=== PATIENT | female | born 1940 | race Two or more races ===

== ENCOUNTER → 2022-11-23 | Outpatient (CLI) | payer OTHER ==
[2022-11-23 09:11] LABS: Basophils # (auto) 0 10 ^3/uL (0-0.2); Basophils % (auto) 0.9 % (0.0-2.0); Eosinophils # (auto) 0 10 ^3/uL (0-0.8); Eosinophils % (auto) 0.8 % (0.0-7.0); Hematocrit 46.4 % (36.0-46.0); Hemoglobin 15.6 g/dL (12.2-16.2); Lymphocytes # (auto) 1.6 10 ^3/uL (0.4-5.4); Lymphocytes % (auto) 33.7 % (10.0-50.0); Mean Corpuscular Hemoglobin 32.3 pg (28.0-32.0); Mean Corpuscular Hgb Conc. 33.7 g/dL (32.0-36.0); Mean Corpuscular Volume 95.8 fL (80.0-100.0); Monocytes # (auto) 0.4 10 ^3/uL (0-1.3); Monocytes % (auto) 8.1 % (0.0-12.0); Neutrophils # (auto) 2.8 10 ^3/uL (1.6-8.6); Neutrophils % (auto) 56.5 % (37.0-80.0); Nucleated Red Blood Cells % 0.2 %; Red Blood Cells 4.85 10^6/uL (4.0-5.20); Red Cell Distribution Width 13.4 % (11.8-14.3); White Blood Cell 4.9 10^3/uL (4.4-10.8)
[2022-11-23 09:34] LABS: Calcium 9.4 mg/dL (8.5-10.1)
[2022-11-23 09:37] LABS: Free T4 (Free Thyroxine) 1.63 ng/dL (0.89-1.76)
[2022-11-23 09:38] LABS: Free T3 3.86 pg/mL (2.3-4.2)
[2022-11-23 09:42] LABS: Albumin 4.5 g/dL (3.4-5.0); BUN/Creatinine Ratio 18.9 (10.0-20.0); Bilirubin, Total 0.9 mg/dL (0.2-1.0); Total Protein 8.3 g/dL (6.4-8.2)
== END | disposition home or self-care (01) ==
LOC: LAB 08:13
PROVIDERS: ATTEND Internal Medicine
DX: E11.69 Type 2 diabetes mellitus with other specified complication (principal); E78.5 Hyperlipidemia, unspecified; E03.9 Hypothyroidism, unspecified; E55.9 Vitamin D deficiency, unspecified
CPT/HCPCS: 36415; 80053; 82043; 82306; 82465; 83036; 83718; 83721; 84439; 84443; 84478; 84481; 85025

== ENCOUNTER → 2023-05-09 | Outpatient (CLI) | payer OTHER ==
[2023-05-09 09:50] LABS: Basophils # (auto) 0 10 ^3/uL (0-0.2); Basophils % (auto) 0.6 % (0.0-2.0); Eosinophils # (auto) 0 10 ^3/uL (0-0.8); Eosinophils % (auto) 0.8 % (0.0-7.0); Hemoglobin 14.8 g/dL (12.2-16.2); Lymphocytes # (auto) 1.4 10 ^3/uL (0.4-5.4); Lymphocytes % (auto) 25.6 % (10.0-50.0); Mean Corpuscular Hemoglobin 32.3 pg (28.0-32.0); Mean Corpuscular Hgb Conc. 32.9 g/dL (32.0-36.0); Monocytes # (auto) 0.5 10 ^3/uL (0-1.3); Monocytes % (auto) 8.7 % (0.0-12.0); Neutrophils # (auto) 3.5 10 ^3/uL (1.6-8.6); Neutrophils % (auto) 64.3 % (37.0-80.0); Red Blood Cells 4.59 10^6/uL (4.0-5.20); Red Cell Distribution Width 13.5 % (11.8-14.3); White Blood Cell 5.4 10^3/uL (4.4-10.8)
[2023-05-09 09:55] LABS: Alanine Aminotransferase 17 U/L (7-40); Albumin 4.8 g/dL (3.2-4.8); Alkaline Phosphatase 78 U/L (46-116); Anion Gap 7 (5-15); Aspartate Aminotransferase 16 U/L (13-40); BUN/Creatinine Ratio 9.7 (10.0-20.0); Bilirubin, Total 1.1 mg/dL (0.2-1.0); Blood Urea Nitrogen 9 mg/dL (9-23); Calcium 9.7 mg/dL (8.5-10.1); Carbon Dioxide 26 mmol/L (20-30); Chloride 104 mmol/L (98-107); Cholesterol 186 mg/dL (< 200); Glucose 115 mg/dL (74-106); HDL Cholesterol 97 mg/dL (40-59); LDL Cholesterol 76 mg/dL (< 100); Potassium 4.3 mmol/L (3.5-5.1); Sodium 137 mmol/L (136-145); Triglycerides 80 mg/dL (< 150)
[2023-05-09 09:56] LABS: Total Protein 7.7 g/dL (5.7-8.2)
== END | disposition home or self-care (01) ==
LOC: LAB 08:41
PROVIDERS: ATTEND Internal Medicine
DX: E11.29 Type 2 diabetes mellitus with other diabetic kidney complication (principal); E03.9 Hypothyroidism, unspecified
CPT/HCPCS: 36415; 80053; 80061; 82043; 83036; 84436; 84443; 84480; 85025

== ENCOUNTER 2023-07-20 08:33 | Inpatient (IN) | payer OTHER ==
[~2023-07-20] VITALS: Ht 162.6 cm; Wt 80.0 kg
[2023-07-20 08:56] VITALS: PULSE 154; RESP 16; O2SAT 93
[2023-07-20] MEDS ORDERED: dilTIAZem 25 MG/5 ML VIAL IV ONE (09:00)
[2023-07-20] MEDS ORDERED: dilTIAZem 125mg/125ml BAG KIT 100 ML IV ONE (09:00)
[2023-07-20] MEDS ORDERED: IOHEXOL 350 MG/ML 100ML IJ ONE (09:22)
[2023-07-20 09:26] LABS: Basophils # (auto) 0 10 ^3/uL (0-0.2); Basophils % (auto) 0.3 % (0.0-2.0); Eosinophils # (auto) 0 10 ^3/uL (0-0.8); Hematocrit 43.7 % (36.0-46.0); Hemoglobin 14.6 g/dL (12.2-16.2); Lymphocytes # (auto) 0.2 10 ^3/uL (0.4-5.4); Lymphocytes % (auto) 2.1 % (10.0-50.0); Mean Corpuscular Hemoglobin 31.6 pg (28.0-32.0); Mean Corpuscular Hgb Conc. 33.4 g/dL (32.0-36.0); Mean Corpuscular Volume 94.8 fL (80.0-100.0); Monocytes # (auto) 0.6 10 ^3/uL (0-1.3); Neutrophils # (auto) 8.4 10 ^3/uL (1.6-8.6); Neutrophils % (auto) 90.6 % (37.0-80.0); Red Blood Cells 4.61 10^6/uL (4.0-5.20); White Blood Cell 9.2 10^3/uL (4.4-10.8)
[2023-07-20 09:45] LABS: Alanine Aminotransferase 25 U/L (7-40); Albumin 4.5 g/dL (3.2-4.8); Alkaline Phosphatase 69 U/L (46-116); Anion Gap 15 (5-15); Aspartate Aminotransferase 40 U/L (13-40); BUN/Creatinine Ratio 15.1 (10.0-20.0); Bilirubin, Total 1.1 mg/dL (0.2-1.0); Blood Urea Nitrogen 11 mg/dL (9-23); Calcium 9.3 mg/dL (8.5-10.1); Carbon Dioxide 20 mmol/L (20-30); Chloride 102 mmol/L (98-107); Glucose 94 mg/dL (74-106); Potassium 3.2 mmol/L (3.5-5.1); Sodium 137 mmol/L (136-145); Total Protein 7.3 g/dL (5.7-8.2)
[2023-07-20] MEDS ORDERED: ACETAMINOPHEN 325 MG TAB PO ONE (10:15)
[2023-07-20 10:29] LABS: INR 1.55 (0.9-1.15); Partial Thromboplastin Time 37.2 SEC (24.5-34.5); Prothrombin Time 15.8 sec (9.3-11.8)
[2023-07-20 10:42] LABS: COVID19 ANTIGEN SOFIA FIA NEGATIVE (NEGATIVE)
[2023-07-20 10:54] LABS: Rapid Influenza B Negative (Negative)
[2023-07-20 10:55] LABS: Rapid Influenza A Positive (Negative)
[2023-07-20] MEDS ORDERED: PIPERACILLIN-TAZO 4.5GM 100 ML IV ONE (11:15)
[2023-07-20] MEDS ORDERED: POTASSIUM EFFERVESENT TAB 25 MEQ PO ONE (11:15)
[2023-07-20] MEDS ORDERED: VANCOMYCIN 1GM/200ML 200 ML IV ONE (11:15)
[2023-07-20 11:21] LABS: Magnesium 1.6 mg/dL (1.6-2.6)
[2023-07-20] MEDS ORDERED: METO1TAB9 PO (11:44)
[2023-07-20] MEDS ORDERED: DILT-14 PO (11:44)
[2023-07-20] MEDS ORDERED: FURO40TA4 PO (11:44)
[2023-07-20] MEDS ORDERED: LIOT5TAB20 PO (11:44)
[2023-07-20] MEDS ORDERED: LOS25T PO (11:44)
[2023-07-20] MEDS ORDERED: LEVO125T7 PO (11:44)
[2023-07-20] MEDS ORDERED: POTA-228 PO (11:44)
[2023-07-20] MEDS ORDERED: guaiFENesin-CODEINE Liq 5 ML UD PO ONE (11:45)
[2023-07-20] MEDS ORDERED: guaiFENesin-CODEINE Liq 5 ML UD PO PRN (11:45)
[2023-07-20] MEDS ORDERED: MORPHINE SULFATE INJ 2 MG/ml SYRG IV PRN (11:45)
[2023-07-20] MEDS ORDERED: ALBUTEROL SULF 2.5 MG/0.5ML(0.5%) NEB SOLN NEB PRN (11:45)
[2023-07-20] MEDS ORDERED: NITROGLYCERIN 0.4 MG SL TAB SL PRN (11:45)
[2023-07-20] MEDS ORDERED: BENZ100C97 PO (11:55)
[2023-07-20] MEDS ORDERED: RIVA10TA PO (11:56)
[2023-07-20 12:16] VITALS: BP 126/69; PULSE 128; RESP 28; TEMP 99.9; O2SAT 94
[2023-07-20 12:32] LABS: Triglycerides 102 mg/dL (< 150)
[2023-07-20 12:33] LABS: LDL Cholesterol 58 mg/dL (< 100)
[2023-07-20 12:34] LABS: Cholesterol 136 mg/dL (< 200); HDL Cholesterol 61 mg/dL (40-59)
[2023-07-20] MEDS ORDERED: POTASSIUM CHL 20 Meq TABLET PO ONE (13:30)
[2023-07-20] MEDS ORDERED: MAGNESIUM SULFATE 1GM/100ML 100 ML IV ONE (13:30)
[2023-07-20] MEDS: SODIUM CHLORIDE 0.9% 1,000 ML IV SCH (13:45)
[2023-07-20] MEDS: cefTRIAXone 1GM/50ML D5W 50 ML IV SCH (14:00)
[2023-07-20] MEDS ORDERED: AZITHROMYCIN 500MG/ 250ML 250 ML IV SCH (14:00)
[2023-07-20] MEDS ORDERED: ALBUTEROL SULF 2.5 MG/0.5ML(0.5%) NEB SOLN NEB SCH (14:00)
[2023-07-20] MEDS ORDERED: IPRATROPIUM BROM 0.5 MG/2.5ML INH SOL NEB SCH (14:00)
[2023-07-20] MEDS ORDERED: DIGOXIN (250MCG/ML) 2 ML AMPULE IV ONE ×3 (14:45→18:45)
[2023-07-20] MEDS ORDERED: OSELTAMIVIR 75 MG CAP PO ONE (14:45)
[2023-07-20 16:48] LABS: Potassium 3.8 mmol/L (3.5-5.1)
[2023-07-20 16:55] LABS: Magnesium 1.9 mg/dL (1.6-2.6)
[2023-07-20] MEDS: ACETAMINOPHEN 325 MG TAB PO PRN ×2 (19:06→20:29)
[2023-07-20 19:10] VITALS: PULSE 103; RESP 20; O2SAT 97
[2023-07-20] MEDS: LEVALBUTEROL HCL 1.25 MG/3 ML NEB NEB SCH (19:17)
[2023-07-20 19:18] VITALS: PULSE 101; RESP 18; O2SAT 97; O2SAT 99
[2023-07-20 20:00] VITALS: PULSE 102; RESP 16; O2SAT 94
[2023-07-20] MEDS ORDERED: OSELTAMIVIR 30 MG CAP PO SCH (22:00)
[2023-07-21] VITALS (13 sets, daily range): BP systolic 165–169; BP diastolic 73–76; PULSE 89–114; RESP 18–28; TEMP 98.6–98.9; O2SAT 91–98
[2023-07-21] MEDS: LEVALBUTEROL HCL 1.25 MG/3 ML NEB NEB SCH ×4 (00:04→19:23)
[2023-07-21] MEDS ORDERED: dilTIAZem 125mg/125ml BAG KIT 100 ML IV SCH (01:00)
[2023-07-21 05:39] LABS: Basophils # (auto) 0 10 ^3/uL (0-0.2); Basophils % (auto) 0.1 % (0.0-2.0); Eosinophils # (auto) 0 10 ^3/uL (0-0.8); Hematocrit 39.2 % (36.0-46.0); Lymphocytes # (auto) 0.7 10 ^3/uL (0.4-5.4); Lymphocytes % (auto) 6.4 % (10.0-50.0); Mean Corpuscular Hemoglobin 31.8 pg (28.0-32.0); Mean Corpuscular Hgb Conc. 33.2 g/dL (32.0-36.0); Mean Corpuscular Volume 95.7 fL (80.0-100.0); Monocytes # (auto) 0.5 10 ^3/uL (0-1.3); Monocytes % (auto) 4.9 % (0.0-12.0); Neutrophils # (auto) 9.8 10 ^3/uL (1.6-8.6); Neutrophils % (auto) 88.6 % (37.0-80.0); Red Cell Distribution Width 12.9 % (11.8-14.3)
[2023-07-21 05:48] LABS: Alanine Aminotransferase 17 U/L (7-40); Alkaline Phosphatase 56 U/L (46-116); Anion Gap 10 (5-15); Aspartate Aminotransferase 25 U/L (13-40); BUN/Creatinine Ratio 10.9 (10.0-20.0); Blood Urea Nitrogen 7 mg/dL (9-23); Calcium 8.7 mg/dL (8.5-10.1); Carbon Dioxide 21 mmol/L (20-30); Chloride 106 mmol/L (98-107); Glucose 95 mg/dL (74-106); Potassium 4.2 mmol/L (3.5-5.1); Sodium 137 mmol/L (136-145)
[2023-07-21 05:49] LABS: Albumin 3.8 g/dL (3.2-4.8)
[2023-07-21 05:50] LABS: Total Protein 6.3 g/dL (5.7-8.2)
[2023-07-21] MEDS ORDERED: LIOTHYRONINE SODIUM 5 MCG PO SCH (06:00)
[2023-07-21] MEDS ORDERED: LEVOTHYROXINE SODIUM 25 MCG TAB PO SCH (06:00)
[2023-07-21] MEDS: SODIUM CHLORIDE 0.9% 1,000 ML IV SCH (07:20)
[2023-07-21] MEDS: ACETAMINOPHEN 325 MG TAB PO PRN ×2 (08:18→23:02)
[2023-07-21] MEDS: cefTRIAXone 1GM/50ML D5W 50 ML IV SCH (09:08)
[2023-07-21 09:39] LABS: Urine WBC None Seen /hpf (0 - 5)
[2023-07-21] MEDS ORDERED: DOXYCYCLINE 100MG/250ML 250 ML IV SCH (09:45)
[2023-07-21 09:55] LABS: Urine Bacteria NONE SEEN /hpf (None Seen); Urine Blood Negative /uL (Negative); Urine Clarity HAZY (Clear); Urine Color Yellow (Yellow); Urine Protein, UAD 1+ (Negative); Urine Specific Gravity 1.026 (1.001-1.035); Urine Urobilinogen Normal (Negative)
[2023-07-21] MEDS ORDERED: ENOXAPARIN SOD 40 MG/0.4 ML SYRINGE SC SCH (10:00)
[2023-07-21] MEDS ORDERED: LOSARTAN POTASSIUM 25 MG TAB PO SCH (10:00)
[2023-07-21] MEDS ORDERED: dilTIAZem 120MG ER CAP PO SCH ×2 (10:00)
[2023-07-21] MEDS ORDERED: RIVAROXABAN 10 MG TAB PO SCH (10:00)
[2023-07-21] MEDS ORDERED: DIGOXIN 0.125 MG TAB PO SCH (10:00)
[2023-07-21] MEDS ORDERED: OSELTAMIVIR 30 MG CAP PO SCH (10:00)
[2023-07-21] MEDS ORDERED: METOPROLOL SUCCINATE XL 50 MG TAB PO SCH (10:00)
[2023-07-21] MEDS ORDERED: POTASSIUM CHL 10 Meq TABLET PO SCH (10:00)
[2023-07-21] MEDS: OSELTAMIVIR 75 MG CAP PO SCH ×2 (10:25→23:04)
[2023-07-21] MEDS ORDERED: guaiFENesin 200 MG/10 ML UD GT PRN (11:00)
[2023-07-21] MEDS ORDERED: METOPROLOL TARTRATE 25 MG TAB PO ONE (11:15)
[2023-07-21] MEDS ORDERED: MAGNESIUM OXIDE 400 MG TAB PO ONE (11:15)
[2023-07-21] MEDS ORDERED: FUROSEMIDE 20 MG/2 ML VIAL IV ONE (11:15)
[2023-07-21] MEDS ORDERED: ENOXAPARIN SOD 80 MG/0.8ML SYRINGE SC ONE (12:45)
[2023-07-21] MEDS: PANTOPRAZOLE 40 MG TAB PO SCH (16:28)
[2023-07-21] MEDS ORDERED: LOSARTAN POTASSIUM 25 MG TAB PO ONE (19:15)
[2023-07-21] MEDS ORDERED: MELATONIN 5 MG TAB PO ONE (22:00)
[2023-07-21] MEDS ORDERED: METOPROLOL TARTRATE 25 MG TAB PO SCH (22:00)
[2023-07-21] MEDS ORDERED: MELATONIN 5 MG TAB ONE (22:57)
[2023-07-21] MEDS: METOPROLOL TARTRATE 25 MG TAB PO SCH (23:03)
[2023-07-21] MEDS: DOXYCYCLINE 100 MG TAB/CAP PO SCH (23:04)
[2023-07-21] MEDS: ENOXAPARIN SOD 80 MG/0.8ML SYRINGE SC SCH (23:08)
[2023-07-22] VITALS (16 sets, daily range): BP systolic 115–176; BP diastolic 62–87; PULSE 78–114; RESP 16–20; TEMP 98.1–100.4; O2SAT 91–100
[2023-07-22] MEDS: LEVALBUTEROL HCL 1.25 MG/3 ML NEB NEB SCH ×4 (00:29→19:25)
[2023-07-22 05:37] LABS: Basophils # (auto) 0 10 ^3/uL (0-0.2); Basophils % (auto) 0.4 % (0.0-2.0); Eosinophils # (auto) 0 10 ^3/uL (0-0.8); Eosinophils % (auto) 0.2 % (0.0-7.0); Hematocrit 37.5 % (36.0-46.0); Hemoglobin 12.4 g/dL (12.2-16.2); Lymphocytes # (auto) 1.2 10 ^3/uL (0.4-5.4); Lymphocytes % (auto) 13.4 % (10.0-50.0); Mean Corpuscular Hemoglobin 31.5 pg (28.0-32.0); Mean Corpuscular Hgb Conc. 33.2 g/dL (32.0-36.0); Monocytes # (auto) 0.5 10 ^3/uL (0-1.3); Monocytes % (auto) 6.3 % (0.0-12.0); Neutrophils # (auto) 6.9 10 ^3/uL (1.6-8.6); Neutrophils % (auto) 79.7 % (37.0-80.0); Nucleated Red Blood Cells % 0.1 %; Red Blood Cells 3.95 10^6/uL (4.0-5.20); White Blood Cell 8.7 10^3/uL (4.4-10.8)
[2023-07-22 05:49] LABS: Alanine Aminotransferase 15 U/L (7-40); Albumin 3.7 g/dL (3.2-4.8); Alkaline Phosphatase 60 U/L (46-116); Anion Gap 9 (5-15); Aspartate Aminotransferase 20 U/L (13-40); BUN/Creatinine Ratio 12.7 (10.0-20.0); Blood Urea Nitrogen 8 mg/dL (9-23); Calcium 8.7 mg/dL (8.7-10.4); Carbon Dioxide 24 mmol/L (20-30); Chloride 105 mmol/L (98-107); Glucose 84 mg/dL (74-106); Magnesium 2.1 mg/dL (1.6-2.6); Potassium 3.9 mmol/L (3.5-5.1); Sodium 138 mmol/L (136-145)
[2023-07-22] MEDS: LEVOTHYROXINE SODIUM 25 MCG TAB PO SCH (06:17)
[2023-07-22] MEDS: cefTRIAXone 1GM/50ML D5W 50 ML IV SCH (09:27)
[2023-07-22] MEDS: OSELTAMIVIR 75 MG CAP PO SCH ×2 (09:28→22:14)
[2023-07-22] MEDS: DOXYCYCLINE 100 MG TAB/CAP PO SCH ×2 (09:28→22:13)
[2023-07-22] MEDS: PANTOPRAZOLE 40 MG TAB PO SCH (09:28)
[2023-07-22] MEDS: MAGNESIUM OXIDE 400 MG TAB PO SCH (09:28)
[2023-07-22] MEDS: METOPROLOL TARTRATE 25 MG TAB PO SCH ×2 (09:28→22:16)
[2023-07-22] MEDS: ENOXAPARIN SOD 80 MG/0.8ML SYRINGE SC SCH ×2 (09:40→22:14)
[2023-07-22] MEDS ORDERED: LOSARTAN POTASSIUM 25 MG TAB PO SCH (10:00)
[2023-07-22] MEDS ORDERED: FUROSEMIDE 20 MG/2 ML VIAL IV SCH (10:00)
[2023-07-22] MEDS: ACETAMINOPHEN 325 MG TAB PO PRN ×2 (15:40→22:14)
[2023-07-22] MEDS: hydrALAZINE HCL 20 MG/ML VL IV PRN (17:02)
[2023-07-22] MEDS ORDERED: LOSARTAN POTASSIUM 25 MG TAB PO ONE (18:00)
[2023-07-22] MEDS: FUROSEMIDE 20 MG/2 ML VIAL IV SCH ×2 (22:00→22:43)
[2023-07-22] MEDS ORDERED: MELATONIN 5 MG TAB PO ONE (22:00)
[2023-07-22] MEDS: MELATONIN 5 MG TAB PO SCH (22:14)
[2023-07-22] MEDS: guaiFENesin 200 MG/10 ML UD PO PRN (22:36)
[2023-07-23] VITALS (19 sets, daily range): BP systolic 118–175; BP diastolic 82–96; PULSE 96–144; RESP 16–20; TEMP 97.8–98.4; O2SAT 90–100
[2023-07-23] MEDS: LEVALBUTEROL HCL 1.25 MG/3 ML NEB NEB SCH ×5 (00:32→23:49)
[2023-07-23] MEDS: LEVOTHYROXINE SODIUM 25 MCG TAB PO SCH (06:00)
[2023-07-23] MEDS: hydrALAZINE HCL 20 MG/ML VL IV PRN ×2 (06:01→17:24)
[2023-07-23 06:02] LABS: Basophils # (auto) 0 10 ^3/uL (0-0.2); Basophils % (auto) 0.2 % (0.0-2.0); Eosinophils # (auto) 0 10 ^3/uL (0-0.8); Eosinophils % (auto) 0.5 % (0.0-7.0); Hematocrit 39.9 % (36.0-46.0); Hemoglobin 13.4 g/dL (12.2-16.2); Lymphocytes # (auto) 1.2 10 ^3/uL (0.4-5.4); Lymphocytes % (auto) 19.1 % (10.0-50.0); Mean Corpuscular Hgb Conc. 33.6 g/dL (32.0-36.0); Mean Corpuscular Volume 95.1 fL (80.0-100.0); Monocytes # (auto) 0.5 10 ^3/uL (0-1.3); Monocytes % (auto) 7.8 % (0.0-12.0); Neutrophils # (auto) 4.4 10 ^3/uL (1.6-8.6); Neutrophils % (auto) 72.4 % (37.0-80.0); Nucleated Red Blood Cells % 0.1 %; Red Blood Cells 4.19 10^6/uL (4.0-5.20); Red Cell Distribution Width 13.1 % (11.8-14.3); White Blood Cell 6.1 10^3/uL (4.4-10.8)
[2023-07-23 06:14] LABS: Anion Gap 10 (5-15); Carbon Dioxide 26 mmol/L (20-30); Chloride 104 mmol/L (98-107); Potassium 3.3 mmol/L (3.5-5.1); Sodium 140 mmol/L (136-145)
[2023-07-23 06:20] LABS: BUN/Creatinine Ratio 10.3 (10.0-20.0); Blood Urea Nitrogen 7 mg/dL (9-23); Glucose 97 mg/dL (74-106)
[2023-07-23 06:37] LABS: Calcium 8.7 mg/dL (8.7-10.4)
[2023-07-23] MEDS ORDERED: POTASSIUM CHL 20 Meq TABLET PO ONE (08:45)
[2023-07-23] MEDS: cefTRIAXone 1GM/50ML D5W 50 ML IV SCH (09:31)
[2023-07-23] MEDS: FUROSEMIDE 20 MG/2 ML VIAL IV SCH ×2 (09:31→23:28)
[2023-07-23] MEDS: MAGNESIUM OXIDE 400 MG TAB PO SCH (09:32)
[2023-07-23] MEDS: METOPROLOL TARTRATE 25 MG TAB PO SCH ×2 (09:32→23:29)
[2023-07-23] MEDS: OSELTAMIVIR 75 MG CAP PO SCH ×2 (09:32→23:29)
[2023-07-23] MEDS: PANTOPRAZOLE 40 MG TAB PO SCH (09:32)
[2023-07-23] MEDS: LOSARTAN POTASSIUM 25 MG TAB PO SCH (09:32)
[2023-07-23] MEDS: DOXYCYCLINE 100 MG TAB/CAP PO SCH ×2 (09:32→23:28)
[2023-07-23] MEDS: ENOXAPARIN SOD 80 MG/0.8ML SYRINGE SC SCH ×2 (09:42→23:28)
[2023-07-23] MEDS ORDERED: dilTIAZem 120MG ER CAP PO SCH (10:00)
[2023-07-23] MEDS: ACETAMINOPHEN 325 MG TAB PO PRN (13:40)
[2023-07-23] MEDS: guaiFENesin 200 MG/10 ML UD PO PRN (19:40)
[2023-07-23] MEDS: MELATONIN 5 MG TAB PO SCH (22:00)
[2023-07-24] VITALS (16 sets, daily range): BP systolic 129–159; BP diastolic 70–105; PULSE 93–149; RESP 16–21; TEMP 36.8; O2SAT 92–98
[2023-07-24] MEDS: guaiFENesin 200 MG/10 ML UD PO PRN ×3 (02:13→22:10)
[2023-07-24] MEDS: LEVALBUTEROL HCL 1.25 MG/3 ML NEB NEB SCH ×3 (05:53→18:37)
[2023-07-24] MEDS: LEVOTHYROXINE SODIUM 25 MCG TAB PO SCH (06:25)
[2023-07-24 06:51] LABS: Hematocrit 43.9 % (36.0-46.0); Hemoglobin 14.6 g/dL (12.2-16.2); Mean Corpuscular Hemoglobin 31.4 pg (28.0-32.0); Mean Corpuscular Hgb Conc. 33.2 g/dL (32.0-36.0); Mean Corpuscular Volume 94.6 fL (80.0-100.0); Red Blood Cells 4.64 10^6/uL (4.0-5.20); Red Cell Distribution Width 13.4 % (11.8-14.3); White Blood Cell 5.3 10^3/uL (4.4-10.8)
[2023-07-24 07:01] LABS: Alanine Aminotransferase 31 U/L (7-40); Albumin 4.1 g/dL (3.2-4.8); Alkaline Phosphatase 63 U/L (46-116); Anion Gap 11 (5-15); Aspartate Aminotransferase 47 U/L (13-40); BUN/Creatinine Ratio 12.9 (10.0-20.0); Blood Urea Nitrogen 9 mg/dL (9-23); Carbon Dioxide 26 mmol/L (20-30); Chloride 102 mmol/L (98-107); Glucose 95 mg/dL (74-106); Magnesium 2.1 mg/dL (1.6-2.6); Potassium 3.4 mmol/L (3.5-5.1); Sodium 139 mmol/L (136-145)
[2023-07-24 07:02] LABS: Bilirubin, Total 0.9 mg/dL (0.2-1.0)
[2023-07-24 07:45] LABS: Basophils % (manual) 0 (0.0-2.0); Blast Cells 0; Metamyelocytes % 0; Myelocytes % 0; Promyelocytes % 0; Reactive Lymphocytes 0
[2023-07-24] MEDS ORDERED: POTASSIUM CHL 20 Meq TABLET PO ONE (08:00)
[2023-07-24 08:36] LABS: Eosinophils % (manual) 1 (0-7); Lymphocytes % (manual) 25 (10.0-50.0); Monocytes % (manual) 15 (0-12)
[2023-07-24 08:37] LABS: Band Neutrophils % (manual) 3; Platelet Estimate Adequate; RBC Morphology Normal
[2023-07-24] MEDS: cefTRIAXone 1GM/50ML D5W 50 ML IV SCH (08:40)
[2023-07-24] MEDS: ACETAMINOPHEN 325 MG TAB PO PRN ×2 (08:40→15:00)
[2023-07-24] MEDS: ENOXAPARIN SOD 80 MG/0.8ML SYRINGE SC SCH ×2 (08:41→22:14)
[2023-07-24] MEDS: FUROSEMIDE 20 MG/2 ML VIAL IV SCH (08:41)
[2023-07-24] MEDS: hydrALAZINE HCL 20 MG/ML VL IV PRN (08:41)
[2023-07-24] MEDS: DOXYCYCLINE 100 MG TAB/CAP PO SCH ×2 (08:42→22:11)
[2023-07-24] MEDS: MAGNESIUM OXIDE 400 MG TAB PO SCH (08:42)
[2023-07-24] MEDS: PANTOPRAZOLE 40 MG TAB PO SCH (08:43)
[2023-07-24] MEDS: LOSARTAN POTASSIUM 25 MG TAB PO SCH (08:43)
[2023-07-24] MEDS: OSELTAMIVIR 75 MG CAP PO SCH ×2 (08:43→22:13)
[2023-07-24] MEDS: METOPROLOL TARTRATE 50 MG TAB PO SCH ×2 (08:43→22:13)
[2023-07-24] MEDS ORDERED: POTASSIUM EFFERVESENT TAB 25 MEQ PO ONE (10:15)
[2023-07-24] MEDS ORDERED: LABETALOL HCL 5 MG/ML 4ML SYRINGE IV PRN (15:15)
[2023-07-24] MEDS ORDERED: ACETAMINOPHEN 500 MG TAB PO PRN (15:30)
[2023-07-24 15:50] LABS: Rapid Influenza A Negative (Negative); Rapid Influenza B Negative (Negative)
[2023-07-24] MEDS ORDERED: cloNIDine HCL 0.1 MG TAB PO ONE (17:00)
[2023-07-24] MEDS ORDERED: cloNIDine HCL 0.1 MG TAB PO SCH (22:00)
[2023-07-24] MEDS: MELATONIN 5 MG TAB PO SCH (22:00)
[2023-07-25] VITALS (14 sets, daily range): BP systolic 141–177; BP diastolic 77–98; PULSE 83–111; RESP 16–19; TEMP 97.7–97.9; O2SAT 92–98
[2023-07-25] MEDS: LEVALBUTEROL HCL 1.25 MG/3 ML NEB NEB SCH ×3 (00:17→11:34)
[2023-07-25] MEDS: LEVOTHYROXINE SODIUM 25 MCG TAB PO SCH (05:50)
[2023-07-25 05:53] LABS: Hemoglobin 14.4 g/dL (12.2-16.2); Mean Corpuscular Hemoglobin 31.7 pg (28.0-32.0); Mean Corpuscular Hgb Conc. 33.6 g/dL (32.0-36.0); Mean Corpuscular Volume 94.3 fL (80.0-100.0); Red Blood Cells 4.56 10^6/uL (4.0-5.20); Red Cell Distribution Width 13.3 % (11.8-14.3); White Blood Cell 6.3 10^3/uL (4.4-10.8)
[2023-07-25 06:07] LABS: Alanine Aminotransferase 37 U/L (7-40); Alkaline Phosphatase 59 U/L (46-116); Anion Gap 10 (5-15); BUN/Creatinine Ratio 15.8 (10.0-20.0); Blood Urea Nitrogen 12 mg/dL (9-23); Carbon Dioxide 26 mmol/L (20-30); Chloride 103 mmol/L (98-107); Glucose 99 mg/dL (74-106); Magnesium 2.2 mg/dL (1.6-2.6); Potassium 3.4 mmol/L (3.5-5.1); Sodium 139 mmol/L (136-145)
[2023-07-25 06:08] LABS: Albumin 3.8 g/dL (3.2-4.8); Aspartate Aminotransferase 51 U/L (13-40); Bilirubin, Total 0.7 mg/dL (0.2-1.0); Total Protein 6.6 g/dL (5.7-8.2)
[2023-07-25 07:14] LABS: Band Neutrophils % (manual) 0; Basophils % (manual) 0 (0.0-2.0); Blast Cells 0; Metamyelocytes % 0; Promyelocytes % 0; Reactive Lymphocytes 0
[2023-07-25] MEDS ORDERED: POTASSIUM CHL 20 Meq TABLET PO ONE (08:45)
[2023-07-25] MEDS: MAGNESIUM OXIDE 400 MG TAB PO SCH (09:28)
[2023-07-25] MEDS: DOXYCYCLINE 100 MG TAB/CAP PO SCH (09:29)
[2023-07-25] MEDS: ENOXAPARIN SOD 80 MG/0.8ML SYRINGE SC SCH (09:29)
[2023-07-25] MEDS: METOPROLOL TARTRATE 50 MG TAB PO SCH (09:29)
[2023-07-25] MEDS: PANTOPRAZOLE 40 MG TAB PO SCH (09:29)
[2023-07-25] MEDS: cefTRIAXone 1GM/50ML D5W 50 ML IV SCH (09:30)
[2023-07-25] MEDS ORDERED: POTASSIUM EFFERVESENT TAB 25 MEQ PO ONE (09:30)
[2023-07-25] MEDS ORDERED: LOSARTAN POTASSIUM 25 MG TAB PO SCH (10:00)
[2023-07-25 10:58] LABS: Eosinophils % (manual) 2 (0-7); Lymphocytes % (manual) 28 (10.0-50.0); Monocytes % (manual) 8 (0-12); Myelocytes % 8; Platelet Estimate Adequate
[2023-07-25] MEDS ORDERED: cloNIDine HCL 0.1 MG TAB PO ONE (13:15)
== END 2023-07-25 17:20 | disposition home or self-care (01) | DRG 177 ==
LOC: ER 08:33 → TELE 11:43 → EAST 07-21 18:54 → TELE-EAST 07-21 18:58
PROVIDERS: ADMIT Internal Medicine; ATTEND Internal Medicine
DX: J10.08 Influenza due to other identified influenza virus with other specified pneumonia (principal); I50.33 Acute on chronic diastolic (congestive) heart failure; J15.69 Pneumonia due to other Gram-negative bacteria; E66.01 Morbid (severe) obesity due to excess calories; E83.42 Hypomagnesemia; E87.6 Hypokalemia; Z20.822 Contact with and (suspected) exposure to COVID-19; K76.89 Other specified diseases of liver; I48.91 Unspecified atrial fibrillation; I11.0 Hypertensive heart disease with heart failure; K80.20 Calculus of gallbladder without cholecystitis without obstruction; G47.00 Insomnia, unspecified; E03.9 Hypothyroidism, unspecified; Z68.30 Body mass index [BMI] 30.0-30.9, adult; Z79.01 Long term (current) use of anticoagulants; Z82.49 Family history of ischemic heart disease and other diseases of the circulatory system; Z87.891 Personal history of nicotine dependence; Z90.710 Acquired absence of both cervix and uterus
CPT/HCPCS: 36415; 71045; 71275; 80048; 80053; 80061; 81001; 83605; 83735; 83880; 84132; 84443; 84484; 85007; 85025; 85027; 85610; 85730; 87040; 87081; 87426; 87804; 93005; 93306; 94640; G0378; J2543; J3490

== ENCOUNTER → 2023-07-28 | Outpatient (CLI) | payer OTHER ==
[~2023-07-28] MED LIST: BENZ100C97 PO; DILT-14 PO; FURO40TA4 PO; LEVO125T7 PO; LIOT5TAB20 PO; LOS25T PO; METO1TAB9 PO; POTA-228 PO; RIVA10TA PO
[2023-07-28 09:11] LABS: Alanine Aminotransferase 56 U/L (7-40); Albumin 4.3 g/dL (3.2-4.8); Alkaline Phosphatase 79 U/L (46-116); Anion Gap 9 (5-15); Aspartate Aminotransferase 50 U/L (13-40); BUN/Creatinine Ratio 12.3 (10.0-20.0); Blood Urea Nitrogen 13 mg/dL (9-23); Calcium 9.4 mg/dL (8.5-10.1); Carbon Dioxide 27 mmol/L (20-30); Chloride 102 mmol/L (98-107); Glucose 135 mg/dL (74-106); Potassium 4.1 mmol/L (3.5-5.1); Sodium 138 mmol/L (136-145)
[2023-07-28 09:12] LABS: Bilirubin, Total 1.2 mg/dL (0.2-1.0); Total Protein 7.5 g/dL (5.7-8.2)
== END | disposition home or self-care (01) ==
LOC: LAB 07:59
PROVIDERS: ATTEND Internal Medicine
DX: I48.20 Chronic atrial fibrillation, unspecified (principal)
CPT/HCPCS: 36415; 80053

== ENCOUNTER → 2023-12-12 | Outpatient (CLI) | payer OTHER ==
[2023-12-12 08:37] LABS: Basophils # (auto) 0 10 ^3/uL (0-0.2); Basophils % (auto) 0.9 % (0.0-2.0); Eosinophils # (auto) 0.1 10 ^3/uL (0-0.8); Eosinophils % (auto) 1.2 % (0.0-7.0); Hematocrit 43.5 % (36.0-46.0); Hemoglobin 14.3 g/dL (12.2-16.2); Lymphocytes # (auto) 1.7 10 ^3/uL (0.4-5.4); Lymphocytes % (auto) 34.7 % (10.0-50.0); Mean Corpuscular Hemoglobin 31.1 pg (28.0-32.0); Mean Corpuscular Hgb Conc. 32.8 g/dL (32.0-36.0); Mean Corpuscular Volume 94.7 fL (80.0-100.0); Monocytes # (auto) 0.4 10 ^3/uL (0-1.3); Monocytes % (auto) 9.3 % (0.0-12.0); Neutrophils # (auto) 2.6 10 ^3/uL (1.6-8.6); Neutrophils % (auto) 53.9 % (37.0-80.0); Nucleated Red Blood Cells % 0.2 %; Red Blood Cells 4.59 10^6/uL (4.0-5.20); Red Cell Distribution Width 13.4 % (11.8-14.3); White Blood Cell 4.8 10^3/uL (4.4-10.8)
[2023-12-12 09:08] LABS: Creatinine, Urine 6.99 mg/dL (30.0-125.0)
[2023-12-12 09:09] LABS: Alanine Aminotransferase 14 U/L (7-40); Alkaline Phosphatase 84 U/L (46-116); Anion Gap 6 (5-15); Calcium 10.3 mg/dL (8.5-10.1); Carbon Dioxide 27 mmol/L (20-30); Chloride 107 mmol/L (98-107); Glucose 115 mg/dL (74-106); Sodium 140 mmol/L (136-145); Triglycerides 68 mg/dL (< 150)
[2023-12-12 09:10] LABS: BUN/Creatinine Ratio 13.7 (10.0-20.0); Blood Urea Nitrogen 14 mg/dL (9-23); LDL Cholesterol 67 mg/dL (< 100)
[2023-12-12 09:11] LABS: Aspartate Aminotransferase 19 U/L (13-40); Cholesterol 175 mg/dL (< 200); Creatine Kinase IFCC 60 U/L (34-145); HDL Cholesterol 91 mg/dL (40-59)
[2023-12-12 09:12] LABS: Bilirubin, Total 0.8 mg/dL (0.2-1.0)
== END | disposition home or self-care (01) ==
LOC: LAB 08:09
PROVIDERS: ATTEND Internal Medicine
DX: E11.69 Type 2 diabetes mellitus with other specified complication (principal); E78.5 Hyperlipidemia, unspecified; E03.9 Hypothyroidism, unspecified; I48.91 Unspecified atrial fibrillation
CPT/HCPCS: 36415; 80053; 80061; 82043; 82550; 82570; 83036; 84436; 84443; 84480; 85025

== ENCOUNTER → 2024-03-12 | Outpatient (CLI) | payer OTHER ==
[~2024-03-12] MED LIST changes: -LIOT5TAB20 PO; +LIOT5TAB31 PO
[2024-03-12 09:08] LABS: Alanine Aminotransferase 15 U/L (7-40); Albumin 4.5 g/dL (3.2-4.8); Alkaline Phosphatase 76 U/L (46-116); Anion Gap 3 (5-15); Blood Urea Nitrogen 15 mg/dL (9-23); Calcium 9.7 mg/dL (8.7-10.4); Carbon Dioxide 30 mmol/L (20-30); Chloride 106 mmol/L (98-107); Glucose 110 mg/dL (74-106); LDL Cholesterol 77 mg/dL (< 100); Potassium 4.6 mmol/L (3.5-5.1); Sodium 139 mmol/L (136-145); Triglycerides 81 mg/dL (< 150)
[2024-03-12 09:09] LABS: Aspartate Aminotransferase 18 U/L (13-40); Bilirubin, Total 1.1 mg/dL (0.2-1.0); Cholesterol 177 mg/dL (< 200); Creatine Kinase IFCC 72 U/L (34-145); HDL Cholesterol 83 mg/dL (40-59)
[2024-03-12 09:10] LABS: Total Protein 7.6 g/dL (5.7-8.2)
== END | disposition home or self-care (01) ==
LOC: LAB 08:05
PROVIDERS: ATTEND Internal Medicine
DX: E11.29 Type 2 diabetes mellitus with other diabetic kidney complication (principal); E78.5 Hyperlipidemia, unspecified; E03.9 Hypothyroidism, unspecified
CPT/HCPCS: 36415; 80053; 80061; 82043; 82550; 83036; 84436; 84443; 84480

== ENCOUNTER → 2024-07-03 | Outpatient (CLI) | payer OTHER ==
[2024-07-03 08:25] LABS: Basophils # (auto) 0 10 ^3/uL (0-0.2); Basophils % (auto) 0.6 % (0.0-2.0); Eosinophils # (auto) 0.1 10 ^3/uL (0-0.8); Eosinophils % (auto) 1.4 % (0.0-7.0); Hemoglobin 15.3 g/dL (12.2-16.2); Lymphocytes # (auto) 0.9 10 ^3/uL (0.4-5.4); Lymphocytes % (auto) 19.1 % (10.0-50.0); Mean Corpuscular Hemoglobin 32.3 pg (28.0-32.0); Mean Corpuscular Hgb Conc. 33.2 g/dL (32.0-36.0); Mean Corpuscular Volume 97.2 fL (80.0-100.0); Monocytes # (auto) 0.6 10 ^3/uL (0-1.3); Monocytes % (auto) 11.5 % (0.0-12.0); Neutrophils # (auto) 3.2 10 ^3/uL (1.6-8.6); Neutrophils % (auto) 67.4 % (37.0-80.0); Nucleated Red Blood Cells % 0.1 %; Platelet Count (auto) 228 10^3/uL (140-450); Red Blood Cells 4.73 10^6/uL (4.0-5.20); Red Cell Distribution Width 13.6 % (11.8-14.3); White Blood Cell 4.8 10^3/uL (4.4-10.8)
[2024-07-03 09:44] LABS: Alanine Aminotransferase 18 U/L (7-40); Albumin 4.8 g/dL (3.2-4.8); Alkaline Phosphatase 76 U/L (46-116); Anion Gap 5 (5-15); Aspartate Aminotransferase 20 U/L (13-40); BUN/Creatinine Ratio 9.9 (10.0-20.0); Blood Urea Nitrogen 10 mg/dL (9-23); Calcium 9.6 mg/dL (8.7-10.4); Carbon Dioxide 31 mmol/L (20-31); Chloride 104 mmol/L (98-107); LDL Cholesterol 84 mg/dL (< 100); Potassium 4.7 mmol/L (3.5-5.1); Sodium 140 mmol/L (136-145); Triglycerides 96 mg/dL (< 150)
[2024-07-03 09:45] LABS: Bilirubin, Total 0.6 mg/dL (0.2-1.0); Cholesterol 184 mg/dL (< 200); Creatine Kinase IFCC 71 U/L (34-145)
[2024-07-03 09:46] LABS: Glucose 117 mg/dL (74-106); HDL Cholesterol 78 mg/dL (40-59)
== END | disposition home or self-care (01) ==
LOC: LAB 08:09
PROVIDERS: ATTEND Internal Medicine
DX: E11.69 Type 2 diabetes mellitus with other specified complication (principal); I48.91 Unspecified atrial fibrillation; E78.5 Hyperlipidemia, unspecified; E03.9 Hypothyroidism, unspecified
CPT/HCPCS: 36415; 80053; 80061; 82043; 82550; 83036; 84436; 84443; 84480; 85025

== ENCOUNTER → 2024-10-22 | Outpatient (CLI) | payer OTHER ==
[2024-10-22 09:01] LABS: Creatinine, Urine 17.31 mg/dL (30.0-125.0)
[2024-10-22 09:05] LABS: Alanine Aminotransferase 21 U/L (7-40); Alkaline Phosphatase 64 U/L (46-116); Aspartate Aminotransferase 21 U/L (13-40); BUN/Creatinine Ratio 14.1 (10.0-20.0); Blood Urea Nitrogen 14 mg/dL (9-23); Calcium 9.9 mg/dL (8.7-10.4); Carbon Dioxide 26 mmol/L (20-31); Cholesterol 199 mg/dL (< 200); LDL Cholesterol 81 mg/dL (< 100); Potassium 4.2 mmol/L (3.5-5.1); Sodium 139 mmol/L (136-145); Total Protein 7.8 g/dL (5.7-8.2); Triglycerides 100 mg/dL (< 150)
[2024-10-22 09:09] LABS: Albumin 4.9 g/dL (3.2-4.8); Glucose 118 mg/dL (74-106); HDL Cholesterol 98 mg/dL (40-59)
[2024-10-22 09:16] LABS: Anion Gap 8 (5-15); Chloride 105 mmol/L (98-107)
== END | disposition home or self-care (01) ==
LOC: LAB 08:19
PROVIDERS: ATTEND Internal Medicine
DX: E11.69 Type 2 diabetes mellitus with other specified complication (principal); E78.5 Hyperlipidemia, unspecified; E03.9 Hypothyroidism, unspecified
CPT/HCPCS: 36415; 80053; 80061; 82043; 82570; 83036; 84436; 84443; 84480

== ENCOUNTER 2025-03-20 08:09 | Outpatient (CLI) | payer OTHER ==
[2025-03-20 09:16] LABS: Urine Protein, UAD Negative (Negative)
[2025-03-20 09:37] LABS: Alanine Aminotransferase 17 U/L (7-40); Albumin 5.1 g/dL (3.2-4.8); Alkaline Phosphatase 72 U/L (46-116); Anion Gap 10 (5-15); BUN/Creatinine Ratio 14.3 (10.0-20.0); Blood Urea Nitrogen 13 mg/dL (9-23); Calcium 9.5 mg/dL (8.7-10.4); Carbon Dioxide 29 mmol/L (20-31); Chloride 103 mmol/L (98-107); Glucose 111 mg/dL (74-106); Potassium 4.3 mmol/L (3.5-5.1); Sodium 142 mmol/L (136-145); Total Protein 8.1 g/dL (5.7-8.2); Triglycerides 83 mg/dL (< 150)
[2025-03-20 09:38] LABS: Bilirubin, Total 0.9 mg/dL (0.2-1.0); Cholesterol 177 mg/dL (< 200)
[2025-03-20 09:39] LABS: HDL Cholesterol 80 mg/dL (40-59)
[2025-03-20 09:41] LABS: Microalb/Creat Ratio, Urine 30.0
== END 2025-03-20 17:00 | disposition home or self-care (01) ==
LOC: LAB 08:09
PROVIDERS: ATTEND Internal Medicine
DX: E78.9 Disorder of lipoprotein metabolism, unspecified (principal); E03.5 Myxedema coma; R30.0 Dysuria; R73.9 Hyperglycemia, unspecified
CPT/HCPCS: 36415; 80053; 80061; 81001; 82043; 82570; 83036; 84436; 84443; 84480; 87086